=== PATIENT | female | born 1965 | race African-American/Black ===

== ENCOUNTER 2018-11-15 11:42 | Emergency (ER) | payer OTHER ==
[2018-11-15 12:16] VITALS: BP 130/74; PULSE 94; TEMP 97.8; BMI 27.6
--- NOTE | 2018-11-15 12:29 | PDOC ---
History of Present Illness - General History Source: Patient, Family Exam Limitations: No Limitations - History of Present Illness Initial Comments: 11/15/18 12:20 Pt. is a 53 y.o. F w/ PMHx. of HTN, HLD, NIDDM and "tremors" presents to the ED from her PCP( Dr. Durant)' office for tremors. Pt. states that she was diagnosed at a young age with "tremors," but that she is not currently on any medications. Pt. was on Dilantin and Carbamazepine last August however Pt. had an adverse reaction causing her to hallucinate during her hospital stay and she fell face forward onto the floor. Pt. states that the tremors she has now are not worse than when she was on medication. the tremors usually start with her right hand and can migrate to her contralateral arm or her legs or her tongue or her eyes. Pt. states that sometimes her tremors are preceded by palpitations. when Pt. takes deep breaths these seem to calm her tremors down. Pt. endorses intermitten anterograde amnesia that presents itself during conversation. Pt. endorses pins and needle sensation in her left arm radiating down to left hand with associated burning sensation. Pt. endorses b/l pins and needle sensation between the 1st and 2nd digits of the feet. Pt. last had an MRI at a hospital in [place] last April that was negative for any pathology. Timing/Duration: constant Severity: moderate Modifying Factors: improves with: rest, other (deep breaths ) Associated Symptoms: reports: seizure. denies: chest pain, fever/chills, headaches, loss of appetite, nausea/vomiting, shortness of breath Aspirin Received prior to arrival: Yes: no aspirin today Beta Luis Contraindications(Core Measure): Yes: Not Prescribed <Luis Felipe Suresh - Last Filed: 11/15/18 14:36> <Livia Montemayor - Last Filed: 11/15/18 15:31> - General Chief Complaint: Seizure Stated Complaint: Seizure Time Seen by Provider: 11/15/18 11:49 Past History - Travel Traveled outside of the country in the last 30 days: Yes Close contact w/someone who was outside of country & ill: No Do you know what country they traveled to?: [place] - Past Medical History Asthma: Yes Diabetes: Yes HTN: Yes Hypercholesterolemia: Yes Seizures: Yes - Surgical History Abdominal Surgery: No Appendectomy: No Cardiac Surgery: No Cholecystectomy: No Gastric Stapling: No GI Surgery: No Lung Surgery: No Neurologic Surgery: No Orthopedic Surgery: No - Suicide/Smoking/Psychosocial Hx Smoking History: Unknown if ever smoked Have you smoked in the past 12 months: No Hx Alcohol Use: No Drug/Substance Use Hx: No Substance Use Type: None <Luis Felipe Suresh - Last Filed: 11/15/18 14:36> <Livia Montemayor - Last Filed: 11/15/18 15:31> - Past Medical History Allergies/Adverse Reactions: Allergies Allergy/AdvReac Type Severity Reaction Status Date / Time carbamazepine [From Tegretol] Allergy Verified 11/15/18 11:58 phenytoin [From Dilantin] Allergy Verified 11/15/18 11:58 Home Medications: Ambulatory Orders Albuterol Sulfate Inhaler - [Ventolin Hfa Inhaler -] 1 - 2 inh PO Q4H PRN Amitriptyline HCl [Elavil -] 25 mg PO HS 11/15/18 Amlodipine Besylate [Norvasc -] 5 mg PO DAILY 11/15/18 Atorvastatin Calcium 40 mg PO HS 11/15/18 Citalopram Hydrobromide [Citalopram HBr] 20 mg PO DAILY 11/15/18 Fluticasone Propionate [Flonase Allergy Relief] 9.9 ml NS ASDIR 11/15/18 Ketotifen Fumarate 1 drop OU BID 11/15/18 Metformin HCl [Metformin HCl ER] 500 mg PO DAILY 11/15/18 Montelukast Na [Singulair -] 10 mg PO HS 11/15/18 Ranitidine HCl [Acid Button Station Worker] 75 mg PO BID 11/15/18 Tizanidine HCl [Zanaflex] 4 mg PO HS PRN 11/15/18 traZODone HCL [Trazodone HCl] 50 mg PO HS 11/15/18 Review of Systems - Review of Systems Able to Perform ROS?: Yes Is the patient limited Andorran proficient: No Constitutional: No: Chills, Fever, Loss of Appetite, Weakness HEENTM: No: Recent change in vision, Hearing Loss, Difficulty Swallowing Respiratory: No: Cough, Orthopnea, Shortness of Breath, Wheezing Cardiac (ROS): Yes: Palpitations (sometimes before seizures ). No: Chest Pain, Edema, Lightheadedness, Chest Tightness ABD/GI: Yes: Blood Streaked Bowels, Constipated. No: Abdominal Distended, Diarrhea, Difficulty Swallowing, Nausea, Vomiting, Indigestion : No: Burning, Dysuria, Discharge, Frequency, Flank Pain, Hematuria, Incontinence, Pain, Urgency Musculoskeletal: No: Symptoms Reported, Muscle Pain, Muscle Weakness Integumentary: No: Symptoms Reported Neurological: Yes: Numbness, Seizure, Tingling, Tremors. No: Headache, Unsteady Gait, Dizziness Psychiatric: Yes: Mood Swings Endocrine: No: Symptoms Reported Hematologic/Lymphatic: No: Symptoms Reported <Luis Felipe Suresh - Last Filed: 11/15/18 14:36> *Physical Exam - Vital Signs Last Vital Signs Temp Pulse Resp BP Pulse Ox 97.8 F 94 H 18 130/74 100 11/15/18 12:15 11/15/18 12:15 11/15/18 12:15 11/15/18 12:15 11/15/18 12:15 - Physical Exam General Appearance: Yes: Nourished, Appropriately Dressed, Apparent Distress HEENT: positive: EOMI, MARGARITO, Normal ENT Inspection, Normal Voice, Symmetrical. negative: Pale Conjunctivae (conjunctival injection), Pharyngeal Erythema, Tonsillar Exudate, Tonsillar Erythema Neck: positive: Trachea midline, Supple. negative: Tender, Tender lateral, Tender midline Respiratory/Chest: positive: Lungs Clear, Normal Breath Sounds. negative: Chest Tender, Respiratory Distress, Accessory Muscle Use, Labored Respiration, Crackles, Rales, Wheezing Cardiovascular: positive: Regular Rhythm, Regular Rate, S1, S2. negative: Edema , JVD, Murmur Vascular Pulses: Dorsalis-Pedis (R): 2+ (2+ radial ), Doralis-Pedis (L): 2+ (2+ radial) Gastrointestinal/Abdominal: positive: Soft, Decreased BS. negative: Distended, Guarding, Rebound, Tenderness <Luis Felipe Suresh - Last Filed: 11/15/18 14:36> - Vital Signs Last Vital Signs Temp Pulse Resp BP Pulse Ox 97.8 F 94 H 18 130/74 100 11/15/18 12:15 11/15/18 12:15 11/15/18 12:15 11/15/18 12:15 11/15/18 12:15 <Livia Montemayorsam - Last Filed: 11/15/18 15:31> Moderate Sedation - Procedure Monitoring Vital Signs: Procedure Monitoring Vital Signs Temperature 97.8 F 11/15/18 12:15 Pulse Rate 94 H 11/15/18 12:15 Respiratory Rate 18 11/15/18 12:15 Blood Pressure 130/74 11/15/18 12:15 O2 Sat by Pulse Oximetry (%) 100 11/15/18 12:15 <Luis Felipe Suresh - Last Filed: 11/15/18 14:36> - Procedure Monitoring Vital Signs: Procedure Monitoring Vital Signs Temperature 97.8 F 11/15/18 12:15 Pulse Rate 94 H 11/15/18 12:15 Respiratory Rate 18 11/15/18 12:15 Blood Pressure 130/74 11/15/18 12:15 O2 Sat by Pulse Oximetry (%) 100 11/15/18 12:15 <Livia Montemayor - Last Filed: 11/15/18 15:31> ED Treatment Course - LABORATORY CBC & Chemistry Diagram: 11/15/18 12:40 11/15/18 12:40 <Luis Felipe Suresh - Last Filed: 11/15/18 14:36> - LABORATORY CBC & Chemistry Diagram: 11/15/18 12:40 11/15/18 12:40 - ADDITIONAL ORDERS Additional order review: Laboratory Results 11/15/18 11/15/18 11/15/18 14:40 13:20 12:40 Sodium 139 Potassium 4.0 Chloride 104 Carbon Dioxide 29 Anion Gap 6 L BUN 13 Creatinine 0.8 Creat Clearance w eGFR > 60 Random Glucose 95 Calcium 9.4 Magnesium 2.2 Total Bilirubin 0.7 AST 16 ALT 27 Alkaline Phosphatase 66 Troponin I < 0.02 Total Protein 7.8 Albumin 4.2 Urine Color Straw Urine Appearance Clear Urine pH 7.0 Ur Specific Maple 1.005 L Urine Protein Negative Urine Glucose (UA) Negative Urine Ketones Negative Urine Blood Negative Urine Nitrite Negative Urine Bilirubin Negative Urine Urobilinogen Negative Ur Leukocyte Esterase Negative Stool Occult Blood Negative 11/15/18 12:40 RBC 4.44 MCV 82.9 MCHC 31.7 L RDW 14.4 MPV 6.8 L Neutrophils % 49.5 Lymphocytes % 40.1 H Monocytes % 8.1 Eosinophils % 1.7 Basophils % 0.6 <Livia Montemayor - Last Filed: 11/15/18 15:31> *DC/Admit/Observation/Transfer - Discharge Dispostion Decision to Admit order: No <KerwinLuis Felipe - Last Filed: 11/15/18 14:36> <Livia Montemayor - Last Filed: 11/15/18 15:31> Diagnosis at time of Disposition: Occasional tremors - Discharge Dispostion Disposition: HOME Condition at time of disposition: Stable - Referrals Referrals: Hima Saunders MD [Staff Physician] - 1 week Keyur Moss MD [Staff Physician] - 1 week Dorian Pisano DO [Staff Physician] - 1 week Luis Felipe Aranda MD [Staff Physician] - 1 week James Martino MD [Staff Physician] - 1 week - Patient Instructions Printed Discharge Instructions: DI for Benign Essential Tremor Additional Instructions: You came in for tremors in your hand. We imaged your head and found no cause for immediate concern. Please continue your medications as they were prescribed. Please follow up with your Primary Care Physician, if you do not have a PCP, we have provided one for you(Dr. Saunders). Please follow up with your Neurologist FRANCO. We have provided you with 4 options for Neurologists. Please return to the ED if you are having worsening tremors, nausea vomiting, worsening numbness/tingling in your extremities or any other concerning symptoms. - Post Discharge Activity
[2018-11-15 12:54] LABS: BASO % 0.6 % (0-2.0); EOS % 1.7 % (0-4.5); HEMATOCRIT 36.7 % (32.4-45.2); HEMOGLOBIN 11.7 GM/dL (10.7-15.3); LYMPH % 40.1 % (8-40); MCH 26.3 pg (25.7-33.7); MCHC 31.7 g/dl (32.0-36.0); MEAN CELL VOLUME 82.9 fl (80-96); MEAN PLT VOLUME 6.8 fl (7.5-11.1); MONO % 8.1 % (3.8-10.2); NEUT % 49.5 % (42.8-82.8); PLATELET COUNT 274 K/MM3 (134-434); RBC 4.44 M/mm3 (3.60-5.2); RDW 14.4 % (11.6-15.6); WHITE BLOOD COUNT 3.3 K/mm3 (4.0-10.0)
[2018-11-15 13:24] LABS: ALBUMIN 4.2 g/dl (3.4-5.0); ALK PHOS 66 U/L (45-117); ANION GAP 6 MMOL/L (8-16); BILIRUBIN,TOTAL 0.7 mg/dL (0.2-1); BLOOD UREA NITROGEN 13 mg/dL (7-18); CALCIUM 9.4 mg/dL (8.5-10.1); CHLORIDE 104 mmol/L (98-107); CO2 29 mmol/L (21-32); CREATININE 0.8 mg/dL (0.55-1.3); GLUCOSE,RANDOM 95 mg/dL (74-106); MAGNESIUM 2.2 mg/dL (1.8-2.4); SGOT/AST 16 U/L (15-37); SGPT/ALT 27 U/L (13-61); SODIUM 139 mmol/L (136-145); TOT PROT 7.8 g/dl (6.4-8.2)
--- NOTE | 2018-11-15 14:31 | EKG ---
Test Reason : Blood Pressure : / mmHG Vent. Rate : 079 BPM Atrial Rate : 079 BPM P-R Int : 160 ms QRS Dur : 066 ms QT Int : 394 ms P-R-T Axes : 076 072 062 degrees QTc Int : 451 ms NORMAL SINUS RHYTHM NORMAL ECG NO PREVIOUS ECGS AVAILABLE Confirmed by Kevin Munroe MD ([id number]) on 11/15/2018 2:30:51 PM Referred By: Confirmed By:Kevin Munroe MD
[2018-11-15 15:00] LABS: URINE APPEARANCE CLEAR; URINE BILIRUBIN NEGATIVE (<2.0 mg/dL); URINE COLOR STRAW; URINE GLUCOSE (UA) NEGATIVE (NEGATIVE); URINE KETONE NEGATIVE (NEGATIVE); URINE LEUK ESTERASE NEGATIVE (NEGATIVE); URINE NITRITE NEGATIVE (NEGATIVE); URINE PROTEIN NEGATIVE (NEGATIVE); URINE UROBILINOGEN NEGATIVE mg/dL (0.2-1.0)
--- NOTE | 2018-11-15 15:31 | PDOC ---
Attending Attestation - Resident Resident Name: IndianapolisLuis Felipe - ED Attending Attestation I have performed the following: I have examined & evaluated the patient, The case was reviewed & discussed with the resident, I agree w/resident's findings & plan - HPI HPI: 11/15/18 15:26 The patient is a 53 year old female, with a significant past medical history of cervical spondylosis, asthma, nephritis, RA, fibromyalgia, tremors, presenting with complaint of shaking which she describes as tremors while waiting in her PCP office today (Dr. Durant). The patient states she has been noticing intermittent right hand tremors x 2 months with unremarkable workup per history. , however, reports left hand and tongue tremors intermittently. Left sided neck pain, since August 2018 a/w paresthesias. Intermittent bleeding from rectum with BM. Recently from [place] x 1 year ago Has not seen neurologist yet. Previously on dilantin/carbamazepine for this treatment but currently not taking The patient denies chest pain, shortness of breath, headache and dizziness. The patient denies fever, chills, nausea, vomit, diarrhea and constipation. The patient denies dysuria, frequency, urgency and hematuria. Allergies: NKDA Family History: +seizures in father and daughter Denies drug use, ETOH or tobacco use. Denies stressors. - Physicial Exam PE: 11/15/18 15:26 NAD, well appearing, oriented appropriately, MMM, nl conjunctiva, anicteric; neck supple. lungs clear, RRR, abdomen soft nontender. LIGHT x4. No peripheral edema. normal color for ethnicity, WWP. Alert, oriented to person time and place. CN II-XII grossly intact. Strength prox and distally 5/5 throughout. Sensation grossly intact to light touch. crossing legs. CN II-XII grossly intact, Speech clear. - Medical Decision Making 11/15/18 15:27 See HPI for details Vital signs reviewed, wnl. DDx. tremors, neuropathy, electrolyte/metabolic derangements, TIA/CVA, infection Prior notes reviewed, including admissions, discharges and consultations. laboratory results and imaging reviewed, basic labs and lytes wnl, neg trop. UA_neg for infection. EKG normal sinus rhythm, no interval abnormalities, narrow QRS, ST and T wave segments and morphology normal. CT head neg for CVA/mass or bleed. no pathology noted. ED course: no acute events, no neuro deficits. workup neg. well appearing, no acute distress and comfortable in bed. attempts to call neuro for close followup, no call back from Dr lizarraga can follow up outpatient with multiple neuro referrals for workup of chronic tremors. Dispo: Pt informed of my clinical impression, treatment recommendations and disposition plan. All questions answered to patient's satisfaction and expressed understanding and comfort with this. Reasons for returning to the ED sooner discussed with the patient otherwise, follow up with primary care physician. At the time of discharge, the patient is alert, clinically improved, tolerating po and verbalizes understanding of instructions. Patient does not suffer from an acute life-threatening medical condition at this time she is safe for outpatient follow-up. 11/15/18 15:29 Heart Score/ECG Review - ECG Impressions Normal ECG: Yes Comment:: 11/15/18 15:28 EKG normal sinus rhythm, no interval abnormalities, narrow QRS, ST and T wave segments and morphology normal.
== END 2018-11-15 15:26 | disposition home or self-care (01) ==
LOC: JER 11:42
DX: R25.1 Tremor, unspecified (principal); M47.9 Spondylosis, unspecified; M06.9 Rheumatoid arthritis, unspecified; I10 Essential (primary) hypertension; E11.9 Type 2 diabetes mellitus without complications; Z79.84 Long term (current) use of oral hypoglycemic drugs; J45.909 Unspecified asthma, uncomplicated; G40.909 Epilepsy, unspecified, not intractable, without status epilepticus; E78.00 Pure hypercholesterolemia, unspecified; Z88.8 Allergy status to other drugs, medicaments and biological substances
CPT/HCPCS: 36415; 70450-TC; 71045-TC-FY; 80053; 81003; 82272; 83735; 84484; 85025; 93005; 93010; 99282-25